=== PATIENT | male | born 1965 | race Caucasian/White ===

== ENCOUNTER 2021-10-24 14:33 | Outpatient (CLI) | payer BC, OTHER ==
[2021-10-24] MEDS ORDERED: Albumin 25% 100 ML ONE ×2 (15:14)
[2021-10-24] MEDS ORDERED: Lidocaine 1% PF 5 ML VIAL ONE (15:14)
[2021-10-24 16:03] VITALS: BP 90/57
[2021-10-24] MEDS ORDERED: FLU VACC QS2021-22(6MOS UP)/PF 60 MCG/0.5 ML SYRINGE IM ONE (16:15)
== END 2021-10-24 16:45 | disposition home or self-care (01) ==
LOC: CSHRAD 14:33
PROVIDERS: ATTEND Physician Assistant Medical
DX: K70.31 Alcoholic cirrhosis of liver with ascites (principal)
CPT/HCPCS: 49083; P9047

== ENCOUNTER 2021-11-05 07:28 | Day surgery (SDC) | payer BC ==
[2021-11-05] MEDS ORDERED: Lidocaine 1% PF 5 ML VIAL ONE (08:27)
[2021-11-05] MEDS ORDERED: Sodium Bicarbonate 2.5 MEQ/5 ML VIAL ONE (08:27)
[2021-11-05] MEDS ORDERED: Albumin 25% 200 ML ONE (08:27)
[2021-11-05 08:35] LABS: Hemoglobin 7.2 g/dL (13.5-17.5); Mean Corpuscular HGB CONC 33.2 g/dL (32.0-36.0); Mean Corpuscular Hemoglobin 32.4 pg (27.0-33.0); Mean Corpuscular Volume 97.7 fl (81.2-95.1); Mean Platelet Volume 10.7 fl (7.4-10.4); Platelet Count 94 10x3/uL (150-450); RBC Distribution Width 14.8 % (11.5-14.5); Red Blood Cell (RBC) Count 2.22 10x6/uL (4.32-5.72); White Blood Cell (WBC) Count 3.6 10x3/uL (3.5-10.5)
[2021-11-05 08:45] LABS: INR-International Normal Ratio 1.2; PTT 29.3 sec (22.0-33.0); Prothrombin Time 13.1 sec (9.5-12.1)
[2021-11-05 08:51] LABS: Anion Gap 11 mmol/L (10-20); BUN (Urea Nitrogen) 19 mg/dL (8.4-25.7); Calc. Creatinine Clearance 84 mL/min (70-130); Calcium 7.5 mg/dL (7.8-10.44); Carbon Dioxide 23 mmol/L (22-29); Chloride 100 mmol/L (98-107); Glucose 159 mg/dL (70-105); Potassium 4.6 mmol/L (3.5-5.1); Sodium 129 mmol/L (136-145)
[2021-11-05 09:50] LABS: MDiff Complete? YES
[2021-11-05 10:00] LABS: Eosinophils 3 % (0-10); Lymphocytes 24 % (21-51); Monocytes 4 % (0-10); Neutrophil 69 % (42-75)
[2021-11-05 10:03] LABS: Anisocytosis SLIGHT = 6-15 cells (100X) (0-5/hpf); Burr Cells SLIGHT = 2-5 cells (100X) (0-1/hpf); Hypochromia SLIGHT = 6-15 cells (100X) (0-5/hpf); Ovalocytes SLIGHT = 2-5 cells (100X) (0-1/hpf); Poikilocytosis SLIGHT = 6-15 cells (100X) (0-5/hpf)
[2021-11-05 10:04] LABS: Platelet Morphology Comment Appears Decreased
== END 2021-11-05 10:00 | disposition home or self-care (01) ==
LOC: CSHULT 07:28
PROVIDERS: ATTEND Physician Assistant Medical
DX: R18.8 Other ascites (principal)
CPT/HCPCS: 49083; 80048; 85007; 85027; 85610; 85730; P9047

== ENCOUNTER 2021-11-19 07:53 | Day surgery (SDC) | payer BC ==
[2021-11-19] MEDS ORDERED: Lidocaine 1% PF 5 ML VIAL ONE (08:26)
[2021-11-19] MEDS ORDERED: Sodium Bicarbonate 2.5 MEQ/5 ML VIAL ONE (08:26)
[2021-11-19] MEDS ORDERED: Albumin 25% 100 ML ONE ×2 (08:27)
[2021-11-19 08:37] VITALS: BP 104/58; TEMP 98.8
== END 2021-11-19 09:50 | disposition home or self-care (01) ==
LOC: CSHULT 07:53
PROVIDERS: ATTEND Physician Assistant Medical
DX: R18.8 Other ascites (principal)
CPT/HCPCS: 49083; P9047

== ENCOUNTER 2021-12-03 08:09 | Day surgery (SDC) | payer BC, OTHER ==
[2021-12-03] MEDS ORDERED: Albumin 25% 100 ML ONE ×2 (08:26→10:12)
[2021-12-03] MEDS ORDERED: Sodium Bicarbonate 2.5 MEQ/5 ML VIAL ONE (08:27)
[2021-12-03] MEDS ORDERED: Lidocaine 1% PF 5 ML VIAL ONE (08:27)
[2021-12-03 09:15] LABS: #Eosinphils 0.1 10x3/uL (0.0-0.5); #Monocytes 0.3 10x3/uL (0.0-1.1); #Neutrophils 2.6 10x3/uL (1.5-8.4); %Basophils 0.5 % (0.0-2.0); %Eosinophils 2.8 % (0.0-6.0); %Lymphocytes 20.3 % (18.0-47.0); %Monocytes 8.5 % (0.0-10.0); %Neutrophils 67.6 % (40.0-75.0); Hemoglobin 8.8 g/dL (13.5-17.5); Mean Corpuscular Hemoglobin 32.4 pg (27.0-33.0); Mean Corpuscular Volume 95.2 fl (81.2-95.1); Mean Platelet Volume 10.6 fl (7.4-10.4); Platelet Count 112 10x3/uL (150-450); RBC Distribution Width 15.1 % (11.5-14.5); Red Blood Cell (RBC) Count 2.72 10x6/uL (4.32-5.72); White Blood Cell (WBC) Count 3.9 10x3/uL (3.5-10.5)
[2021-12-03 09:20] VITALS: BP 107/59; TEMP 97.8
[2021-12-03 09:27] LABS: INR-International Normal Ratio 1.2; PTT 27.9 sec (22.0-33.0)
== END 2021-12-03 10:35 | disposition home or self-care (01) ==
LOC: CSHULT 08:09
PROVIDERS: ATTEND Physician Assistant Medical
DX: R18.8 Other ascites (principal)
CPT/HCPCS: 49083; 85025; 85610; 85730; P9047

== ENCOUNTER 2021-12-17 08:05 | Day surgery (SDC) | payer BC ==
[2021-12-17] MEDS ORDERED: Albumin 25% 100 ML ONE (08:45)
[2021-12-17] MEDS ORDERED: Sodium Bicarbonate 2.5 MEQ/5 ML VIAL ONE (08:46)
[2021-12-17] MEDS ORDERED: Lidocaine 1% PF 5 ML VIAL ONE (08:46)
[2021-12-17 10:12] VITALS: BP 102/56; TEMP 97.7
[2021-12-17] MEDS ORDERED: FLU VACC QS2021-22(6MOS UP)/PF 60 MCG/0.5 ML SYRINGE IM ONE (11:45)
== END 2021-12-17 10:00 | disposition home or self-care (01) ==
LOC: CSHULT 08:05
PROVIDERS: ATTEND Physician Assistant Medical
DX: R18.8 Other ascites (principal)
CPT/HCPCS: 49083; P9047

== ENCOUNTER 2021-12-31 07:59 | Day surgery (SDC) | payer BC, OTHER ==
[2021-12-31] MEDS ORDERED: Albumin 25% 200 ML ONE (08:38)
[2021-12-31] MEDS ORDERED: Sodium Bicarbonate 2.5 MEQ/5 ML VIAL ONE (08:38)
[2021-12-31] MEDS ORDERED: Lidocaine 1% (PF) 30 ML VIAL ONE (08:40)
[2021-12-31 08:42] LABS: #Eosinphils 0.2 10x3/uL (0.0-0.5); #Monocytes 0.5 10x3/uL (0.0-1.1); #Neutrophils 2.7 10x3/uL (1.5-8.4); %Basophils 0.9 % (0.0-2.0); %Eosinophils 3.9 % (0.0-6.0); %Lymphocytes 22.5 % (18.0-47.0); %Monocytes 10.6 % (0.0-10.0); %Neutrophils 61.6 % (40.0-75.0); Hemoglobin 8.9 g/dL (13.5-17.5); Mean Corpuscular HGB CONC 34.1 g/dL (32.0-36.0); Mean Corpuscular Hemoglobin 33.3 pg (27.0-33.0); Mean Corpuscular Volume 97.8 fl (81.2-95.1); Mean Platelet Volume 10.2 fl (7.4-10.4); Platelet Count 102 10x3/uL (150-450); Red Blood Cell (RBC) Count 2.67 10x6/uL (4.32-5.72); White Blood Cell (WBC) Count 4.4 10x3/uL (3.5-10.5)
[2021-12-31 08:54] LABS: INR-International Normal Ratio 1.3; PTT 30.4 sec (22.0-33.0); Prothrombin Time 14.1 sec (9.5-12.1)
[2021-12-31 09:08] VITALS: TEMP 97.6
== END 2021-12-31 10:00 | disposition home or self-care (01) ==
LOC: CSHULT 07:59
PROVIDERS: ATTEND Physician Assistant Medical
DX: R18.8 Other ascites (principal)
CPT/HCPCS: 49083; 85025; 85610; 85730; J2001; P9047

== ENCOUNTER 2022-02-25 07:36 | Day surgery (SDC) | payer BC ==
[2022-02-25 08:07] VITALS: TEMP 98
[2022-02-25] MEDS ORDERED: Lidocaine 1% PF 5 ML VIAL ONE (08:16)
[2022-02-25] MEDS ORDERED: Albumin 25% 200 ML ONE (08:16)
[2022-02-25] MEDS ORDERED: Sodium Bicarbonate 2.5 MEQ/5 ML VIAL ONE (08:16)
== END 2022-02-25 09:05 | disposition home or self-care (01) ==
LOC: CSHULT 07:36
PROVIDERS: ATTEND Physician Assistant Medical
DX: R18.8 Other ascites (principal)
CPT/HCPCS: 49083; P9047

== ENCOUNTER 2022-03-04 07:35 | Day surgery (SDC) | payer BC ==
[2022-03-04] MEDS ORDERED: Lidocaine 1% PF 5 ML VIAL ONE (07:51)
[2022-03-04] MEDS ORDERED: Albumin 25% 200 ML ONE (07:51)
[2022-03-04] MEDS ORDERED: Sodium Bicarbonate 2.5 MEQ/5 ML VIAL ONE (07:51)
[2022-03-04 08:05] VITALS: TEMP 98.1
== END 2022-03-04 09:10 | disposition home or self-care (01) ==
LOC: CSHULT 07:35
PROVIDERS: ATTEND Physician Assistant Medical
DX: K70.31 Alcoholic cirrhosis of liver with ascites (principal); F17.210 Nicotine dependence, cigarettes, uncomplicated; Z79.899 Other long term (current) drug therapy
CPT/HCPCS: 49083; P9047

== ENCOUNTER 2022-03-11 07:42 | Day surgery (SDC) | payer BC ==
[2022-03-11] MEDS ORDERED: Albumin 25% 200 ML ONE (08:11)
[2022-03-11] MEDS ORDERED: Lidocaine 1% PF 5 ML VIAL ONE (08:16)
[2022-03-11] MEDS ORDERED: Sodium Bicarbonate 2.5 MEQ/5 ML VIAL ONE (08:17)
[2022-03-11 08:30] LABS: Hemoglobin 8.9 g/dL (13.5-17.5); Mean Corpuscular HGB CONC 34.2 g/dL (32.0-36.0); Mean Corpuscular Hemoglobin 33.5 pg (27.0-33.0); Mean Corpuscular Volume 97.7 fl (81.2-95.1); Mean Platelet Volume 10.9 fl (7.4-10.4); Platelet Count 104 10x3/uL (150-450); RBC Distribution Width 14.3 % (11.5-14.5); Red Blood Cell (RBC) Count 2.66 10x6/uL (4.32-5.72); White Blood Cell (WBC) Count 4.6 10x3/uL (3.5-10.5)
[2022-03-11 08:55] LABS: INR-International Normal Ratio 1.3; Prothrombin Time 13.5 sec (9.5-12.1)
[2022-03-11 13:48] VITALS: BP 105/57; TEMP 97.5
== END 2022-03-11 09:42 | disposition home or self-care (01) ==
LOC: CSHULT 07:42
PROVIDERS: ATTEND Physician Assistant Medical
DX: K70.31 Alcoholic cirrhosis of liver with ascites (principal); R16.1 Splenomegaly, not elsewhere classified; K80.20 Calculus of gallbladder without cholecystitis without obstruction
CPT/HCPCS: 49083; 76705; 85027; 85610; P9047

== ENCOUNTER 2022-03-13 01:06 | Observation (INO) | payer BC ==
[2022-03-13] MEDS ORDERED: Ondansetron PF 4 MG/2 ML Vial IVP PRN (04:25)
[2022-03-13] MEDS ORDERED: Morphine 2 MG/ML VIAL SLOW IVP PRN (05:23)
[2022-03-13] MEDS ORDERED: Albumin 25% 25 GM/100 ML BOT IVPB SCH ×2 (05:30→09:00)
[2022-03-13] MEDS ORDERED: Sodium Chloride 0.9% 1,000 ML IV SCH (05:30)
[2022-03-13 05:36] VITALS: BMI 27.1
[2022-03-13 06:05] LABS: #Eosinphils 0.1 10x3/uL (0.0-0.5); #Monocytes 0.3 10x3/uL (0.0-1.1); #Neutrophils 2.1 10x3/uL (1.5-8.4); %Basophils 0.3 % (0.0-2.0); %Eosinophils 1.7 % (0.0-6.0); %Lymphocytes 17.8 % (18.0-47.0); %Monocytes 9.2 % (0.0-10.0); %Neutrophils 70.7 % (40.0-75.0); Hemoglobin 8.3 g/dL (13.5-17.5); Mean Corpuscular HGB CONC 35.9 g/dL (32.0-36.0); Mean Corpuscular Hemoglobin 33.7 pg (27.0-33.0); Mean Corpuscular Volume 93.9 fl (81.2-95.1); Mean Platelet Volume 10.9 fl (7.4-10.4); Platelet Count 79 10x3/uL (150-450); RBC Distribution Width 14.1 % (11.5-14.5); Red Blood Cell (RBC) Count 2.46 10x6/uL (4.32-5.72); White Blood Cell (WBC) Count 2.9 10x3/uL (3.5-10.5)
[2022-03-13 06:42] LABS: ALT (SGPT) 13 U/L (8-55); AST (SGOT) 32 U/L (5-34); Albumin 2.6 g/dL (3.5-5.0); Alkaline Phosphatase 148 U/L (40-110); Anion Gap 10 mmol/L (10-20); BUN (Urea Nitrogen) 13 mg/dL (8.4-25.7); Bilirubin, Total 3.6 mg/dL (0.2-1.2); Calc. Creatinine Clearance 129 mL/min (70-130); Calcium 7.8 mg/dL (7.8-10.44); Carbon Dioxide 25 mmol/L (22-29); Chloride 98 mmol/L (98-107); Globulin 2.5 g/dL (2.4-3.5); Glucose 167 mg/dL (70-105); Potassium 4.5 mmol/L (3.5-5.1); Protein, Total 5.1 g/dL (6.0-8.3); Sodium 128 mmol/L (136-145)
[2022-03-13] MEDS ORDERED: Pantoprazole 40 MG VIAL IVP SCH (09:00)
[2022-03-13] MEDS ORDERED: Furosemide 20 MG/2 ML VIAL SLOW IVP SCH (09:00)
[2022-03-13 11:20] LABS: #Eosinphils 0.1 10x3/uL (0.0-0.5); #Monocytes 0.3 10x3/uL (0.0-1.1); #Neutrophils 1.6 10x3/uL (1.5-8.4); %Basophils 0.8 % (0.0-2.0); %Eosinophils 3.5 % (0.0-6.0); %Monocytes 12.7 % (0.0-10.0); %Neutrophils 60.6 % (40.0-75.0); Hemoglobin 7.3 g/dL (13.5-17.5); Mean Corpuscular HGB CONC 35.8 g/dL (32.0-36.0); Mean Corpuscular Hemoglobin 33.5 pg (27.0-33.0); Mean Corpuscular Volume 93.6 fl (81.2-95.1); Mean Platelet Volume 10.9 fl (7.4-10.4); Platelet Count 70 10x3/uL (150-450); RBC Distribution Width 13.9 % (11.5-14.5); Red Blood Cell (RBC) Count 2.18 10x6/uL (4.32-5.72); White Blood Cell (WBC) Count 2.6 10x3/uL (3.5-10.5)
[2022-03-13 11:30] LABS: Anion Gap 9 mmol/L (10-20); BUN (Urea Nitrogen) 12 mg/dL (8.4-25.7); Calc. Creatinine Clearance 139 mL/min (70-130); Calcium 7.7 mg/dL (7.8-10.44); Carbon Dioxide 24 mmol/L (22-29); Chloride 100 mmol/L (98-107); Glucose 125 mg/dL (70-105); Potassium 4.1 mmol/L (3.5-5.1); Sodium 129 mmol/L (136-145)
[2022-03-13 11:50] LABS: Bilirubin Neg (Negative); Blood, Urine Negative (Negative); Clarity Clear (Clear); Glucose, Urine (Dipstick) Normal (Negative); Ketone, Urine Negative (Negative); Leukocyte Negative (Negative); Nitrite Negative (Negative); Protein, Urine (Dipstick) 15 mg/dl (Neg-Trace); Specific Gravity, Urine 1.015 (1.002-1.036)
[2022-03-13 12:00] LABS: Bacteria/HPF None Seen HPF (None Seen); RBC/HPF 0-3 HPF (0-3); Squamous Epithelial None Seen HPF (0-3); WBC/HPF None Seen HPF (0-3)
[2022-03-13 12:56] VITALS: TEMP 98.2
[2022-03-13 14:25] VITALS: BP 93/51
[2022-03-13 15:59] LABS: SARS-CoV-2 PCR by NAA Not Detected (NotDetected)
== END 2022-03-13 15:12 | disposition home or self-care (01) ==
LOC: CSHERS 01:06 → CSHTELE 05:19
PROVIDERS: ADMIT Student in an Organized Health Care Education/Training Program; ATTEND Nurse Practitioner Family
DX: K42.0 Umbilical hernia with obstruction, without gangrene (principal); K76.6 Portal hypertension; K70.31 Alcoholic cirrhosis of liver with ascites; D69.6 Thrombocytopenia, unspecified; K40.90 Unilateral inguinal hernia, without obstruction or gangrene, not specified as recurrent; D63.8 Anemia in other chronic diseases classified elsewhere; E87.1 Hypo-osmolality and hyponatremia; F17.210 Nicotine dependence, cigarettes, uncomplicated; F10.21 Alcohol dependence, in remission; Z20.822 Contact with and (suspected) exposure to COVID-19
CPT/HCPCS: 74177; 80053; 81001; 85025; 96374; 96375; 96376; C9113; G0378; J7050; P9047; U0003; U0005

== ENCOUNTER 2022-03-18 07:29 | Day surgery (SDC) | payer BC ==
[2022-03-18] MEDS ORDERED: Albumin 25% 100 ML ONE ×2 (07:51)
[2022-03-18] MEDS ORDERED: Lidocaine 1% PF 5 ML VIAL ONE (07:51)
[2022-03-18] MEDS ORDERED: Sodium Bicarbonate 2.5 MEQ/5 ML VIAL ONE (07:52)
[2022-03-18 08:22] VITALS: TEMP 99.2
[2022-03-18 09:04] VITALS: BP 93/51
== END 2022-03-18 09:13 | disposition home or self-care (01) ==
LOC: CSHULT 07:29
PROVIDERS: ATTEND Physician Assistant Medical
DX: K70.31 Alcoholic cirrhosis of liver with ascites (principal); F17.210 Nicotine dependence, cigarettes, uncomplicated
CPT/HCPCS: 49083; P9047

== ENCOUNTER 2022-03-18 22:30 | Emergency (ER) | payer BC, MEDICAID ==
[2022-03-18] MEDS ORDERED: Fentanyl 100 MCG/2 ML VIAL ONE (23:15)
== END 2022-03-19 00:03 | disposition home or self-care (01) ==
LOC: CSHERS 22:30
DX: K42.9 Umbilical hernia without obstruction or gangrene (principal); F17.210 Nicotine dependence, cigarettes, uncomplicated; Z87.19 Personal history of other diseases of the digestive system
CPT/HCPCS: 96372; 99283; J3010

== ENCOUNTER → 2022-03-25 | Day surgery (SDC) | payer BC ==
[~2022-03-25] MED LIST: Albumin 25% 200 ML ONE; Lidocaine 1% PF 5 ML VIAL ONE; Sodium Bicarbonate 2.5 MEQ/5 ML VIAL ONE
== END ==
LOC: CSHULT 07:27
PROVIDERS: ATTEND Physician Assistant Medical
DX: R18.8 Other ascites (principal)
CPT/HCPCS: 49083; P9047

== ENCOUNTER → 2022-04-02 | Day surgery (SDC) | payer BC, MEDICAID | LOC: CSHULT 07:39 | PROVIDERS: ATTEND Physician Assistant Medical | PROC: 0W9G3ZZ Drainage of Peritoneal Cavity, Percutaneous Approach (ICD-10-PCS; principal; 2022-04-02) | PROC: BW40ZZZ Ultrasonography of Abdomen (ICD-10-PCS; principal; 2022-04-02) | DX: R18.8 Other ascites (principal) | CPT/HCPCS: 76705 ==

== ENCOUNTER 2022-04-15 08:12 | Day surgery (SDC) | payer BC, MEDICAID ==
[~2022-04-15 08:12] MED LIST changes: +Albumin 25% 100 ML ONE; -Albumin 25% 200 ML ONE
[2022-04-15 08:49] VITALS: BP 84/51; TEMP 97.6
== END 2022-04-15 09:55 | disposition home or self-care (01) ==
LOC: CSHULT 08:12
PROVIDERS: ATTEND Physician Assistant Medical
PROC: 0W9G3ZZ Drainage of Peritoneal Cavity, Percutaneous Approach (ICD-10-PCS; principal; 2022-04-15)
DX: K70.31 Alcoholic cirrhosis of liver with ascites (principal)
CPT/HCPCS: 49083; C1760; P9047

== ENCOUNTER 2022-04-23 07:23 | Day surgery (SDC) | payer BC ==
[2022-04-23] MEDS ORDERED: Lidocaine 1% PF 5 ML VIAL ONE (07:49)
[2022-04-23] MEDS ORDERED: Albumin 25% 100 ML ONE (07:49)
[2022-04-23] MEDS ORDERED: Sodium Bicarbonate 2.5 MEQ/5 ML VIAL ONE (07:49)
[2022-04-23 08:21] LABS: Hemoglobin 6.5 g/dL (13.5-17.5); MDiff Complete? YES; Mean Corpuscular HGB CONC 34.4 g/dL (32.0-36.0); Mean Corpuscular Hemoglobin 34.4 pg (27.0-33.0); Mean Platelet Volume 10.2 fl (7.4-10.4); Platelet Count 79 10x3/uL (150-450); RBC Distribution Width 16.6 % (11.5-14.5); Red Blood Cell (RBC) Count 1.89 10x6/uL (4.32-5.72); White Blood Cell (WBC) Count 3.2 10x3/uL (3.5-10.5)
[2022-04-23 08:33] LABS: INR-International Normal Ratio 1.3; Prothrombin Time 13.9 sec (9.5-12.1)
[2022-04-23 08:44] LABS: Eosinophils 1 % (0-10); Lymphocytes 18 % (21-51)
[2022-04-23 08:45] LABS: Monocytes 10 % (0-10); Neutrophil 70 % (42-75); Platelet Morphology Comment Appears Decreased
[2022-04-23 08:48] LABS: Macrocytosis SLIGHT = 6-15 cells (100X) (0-5/hpf)
[2022-04-23 08:50] LABS: Ovalocytes SLIGHT = 2-5 cells (100X) (0-1/hpf)
[2022-04-23 10:27] VITALS: BP 91/55; TEMP 97.8; BMI 26.9
== END 2022-04-23 09:40 | disposition home or self-care (01) ==
LOC: CSHULT 07:23
PROVIDERS: ATTEND Physician Assistant Medical
PROC: 0W9G3ZZ Drainage of Peritoneal Cavity, Percutaneous Approach (ICD-10-PCS; principal; 2022-04-23)
DX: K70.31 Alcoholic cirrhosis of liver with ascites (principal); D53.9 Nutritional anemia, unspecified
CPT/HCPCS: 49083; 85025; 85610; P9047

== ENCOUNTER 2022-04-26 12:16 | Emergency (ER) | payer BC, MEDICAID ==
[2022-04-26 13:24] LABS: #Eosinphils 0.1 10x3/uL (0.0-0.5); #Monocytes 0.4 10x3/uL (0.0-1.1); #Neutrophils 2.2 10x3/uL (1.5-8.4); %Basophils 0.3 % (0.0-2.0); %Eosinophils 3.8 % (0.0-6.0); %Lymphocytes 21.4 % (18.0-47.0); %Monocytes 10.4 % (0.0-10.0); %Neutrophils 63.8 % (40.0-75.0); Hemoglobin 6.5 g/dL (13.5-17.5); Mean Corpuscular HGB CONC 35.9 g/dL (32.0-36.0); Mean Corpuscular Hemoglobin 34.9 pg (27.0-33.0); Mean Corpuscular Volume 97.3 fl (81.2-95.1); Mean Platelet Volume 10.2 fl (7.4-10.4); Platelet Count 81 10x3/uL (150-450); RBC Distribution Width 16.2 % (11.5-14.5); Red Blood Cell (RBC) Count 1.86 10x6/uL (4.32-5.72); White Blood Cell (WBC) Count 3.5 10x3/uL (3.5-10.5)
[2022-04-26 13:28] LABS: INR-International Normal Ratio 1.3; PTT 29.5 sec (22.0-33.0); Prothrombin Time 14.3 sec (9.5-12.1)
[2022-04-26 13:31] LABS: ALT (SGPT) 15 U/L (8-55); AST (SGOT) 35 U/L (5-34); Albumin 2.3 g/dL (3.5-5.0); Alkaline Phosphatase 119 U/L (40-110); Anion Gap 9 mmol/L (10-20); BUN (Urea Nitrogen) 18 mg/dL (8.4-25.7); Bilirubin, Total 5.1 mg/dL (0.2-1.2); Calc. Creatinine Clearance 0 mL/min (70-130); Calcium 7.8 mg/dL (7.8-10.44); Carbon Dioxide 26 mmol/L (22-29); Chloride 102 mmol/L (98-107); Globulin 2.5 g/dL (2.4-3.5); Glucose 125 mg/dL (70-105); Potassium 4.4 mmol/L (3.5-5.1); Protein, Total 4.8 g/dL (6.0-8.3); Sodium 133 mmol/L (136-145)
[2022-04-26] MEDS ORDERED: cefTRIAXone\\ROCEPHIN 2 GM VIAL ONE (16:34)
[2022-04-26] MEDS ORDERED: Pantoprazole 40 MG VIAL ONE (16:34)
[2022-04-26] MEDS ORDERED: Octreotide Acetate 100 MCG/ML VIAL ONE (16:35)
== END 2022-04-26 17:00 | disposition short-term general hospital (02) ==
LOC: CSHERS 12:16
DX: D62 Acute posthemorrhagic anemia (principal); K92.2 Gastrointestinal hemorrhage, unspecified; K72.90 Hepatic failure, unspecified without coma; F17.220 Nicotine dependence, chewing tobacco, uncomplicated
CPT/HCPCS: 36415; 36430; 71045; 80053; 82274; 84484; 85025; 85610; 85730; 86850; 86900; 86901; 93005; 96372; 96374; 96375; C9113; J0696; J2354; P9016

== ENCOUNTER 2022-04-29 07:23 | Day surgery (SDC) | payer BC, MEDICAID ==
[2022-04-29] MEDS ORDERED: Sodium Bicarbonate 2.5 MEQ/5 ML VIAL ONE (07:46)
[2022-04-29] MEDS ORDERED: Albumin 25% 200 ML ONE (07:46)
[2022-04-29] MEDS ORDERED: Lidocaine 1% PF 5 ML VIAL ONE (07:47)
[2022-04-29 08:40] VITALS: BP 106/56; TEMP 98
== END 2022-04-29 09:10 | disposition home or self-care (01) ==
LOC: CSHULT 07:23
PROVIDERS: ATTEND Physician Assistant Medical
PROC: 0W9G3ZZ Drainage of Peritoneal Cavity, Percutaneous Approach (ICD-10-PCS; principal; 2022-04-29)
DX: K70.31 Alcoholic cirrhosis of liver with ascites (principal)
CPT/HCPCS: 49083; P9047

== ENCOUNTER 2022-05-07 07:12 | Day surgery (SDC) | payer BC, OTHER ==
[2022-05-07] MEDS ORDERED: Albumin 25% 200 ML ONE (07:25)
[2022-05-07] MEDS ORDERED: Lidocaine 1% PF 5 ML VIAL ONE (07:25)
[2022-05-07] MEDS ORDERED: Sodium Bicarbonate 2.5 MEQ/5 ML VIAL ONE (07:26)
[2022-05-07 08:37] VITALS: BP 101/57; TEMP 97.6
== END 2022-05-07 09:09 | disposition home or self-care (01) ==
LOC: CSHULT 07:12
PROVIDERS: ATTEND Physician Assistant Medical
PROC: 0W9G3ZZ Drainage of Peritoneal Cavity, Percutaneous Approach (ICD-10-PCS; principal; 2022-05-07)
DX: R18.8 Other ascites (principal)
CPT/HCPCS: 49083; P9047

== ENCOUNTER 2022-05-13 07:08 | Day surgery (SDC) | payer BC, OTHER ==
[2022-05-13] MEDS ORDERED: Sodium Bicarbonate 2.5 MEQ/5 ML VIAL ONE (07:41)
[2022-05-13] MEDS ORDERED: Albumin 25% 200 ML ONE (07:41)
[2022-05-13] MEDS ORDERED: Lidocaine 1% PF 5 ML VIAL ONE (07:41)
[2022-05-13 08:14] VITALS: BP 108/57; TEMP 97.8
[2022-05-13] MEDS ORDERED: Prevnar 13-Val Conj/PF 0.5 ML SYRINGE IM ONE (08:30)
== END 2022-05-13 09:20 | disposition home or self-care (01) ==
LOC: CSHULT 07:08
PROVIDERS: ATTEND Physician Assistant Medical
PROC: 0W9G3ZZ Drainage of Peritoneal Cavity, Percutaneous Approach (ICD-10-PCS; principal; 2022-05-13)
DX: K70.31 Alcoholic cirrhosis of liver with ascites (principal)
CPT/HCPCS: 49083; P9047

== ENCOUNTER 2022-05-27 07:16 | Day surgery (SDC) | payer BC, OTHER ==
[2022-05-27] MEDS ORDERED: Albumin 25% 200 ML ONE (07:39)
[2022-05-27] MEDS ORDERED: Sodium Bicarbonate 2.5 MEQ/5 ML VIAL ONE (07:39)
[2022-05-27] MEDS ORDERED: Lidocaine 1% PF 5 ML VIAL ONE (07:39)
[2022-05-27 07:54] VITALS: TEMP 98.4
== END 2022-05-27 09:37 | disposition home or self-care (01) ==
LOC: CSHULT 07:16
PROVIDERS: ATTEND Physician Assistant Medical
PROC: 0W9G3ZZ Drainage of Peritoneal Cavity, Percutaneous Approach (ICD-10-PCS; principal; 2022-05-27)
PROC: BW40ZZZ Ultrasonography of Abdomen (ICD-10-PCS; principal; 2022-05-27)
DX: R18.8 Other ascites (principal); K74.60 Unspecified cirrhosis of liver; F17.200 Nicotine dependence, unspecified, uncomplicated
CPT/HCPCS: 49083; P9047

== ENCOUNTER 2022-06-03 07:53 | Day surgery (SDC) | payer BC, OTHER ==
[~2022-06-03 07:53] MED LIST changes: -Albumin 25% 100 ML ONE; +Albumin 25% 200 ML ONE
[2022-06-03 08:19] VITALS: BP 106/56; TEMP 97.7
== END 2022-06-03 09:35 | disposition home or self-care (01) ==
LOC: CSHULT 07:53
PROVIDERS: ATTEND Physician Assistant Medical
PROC: 0W9G3ZZ Drainage of Peritoneal Cavity, Percutaneous Approach (ICD-10-PCS; principal; 2022-06-03)
DX: R18.8 Other ascites (principal); K74.60 Unspecified cirrhosis of liver
CPT/HCPCS: 49083; P9047

== ENCOUNTER 2022-06-10 07:43 | Day surgery (SDC) | payer BC ==
[2022-06-10] MEDS ORDERED: Albumin 25% 200 ML ONE (08:02)
[2022-06-10] MEDS ORDERED: Lidocaine 1% PF 5 ML VIAL ONE (08:02)
[2022-06-10] MEDS ORDERED: Sodium Bicarbonate 2.5 MEQ/5 ML VIAL ONE (08:02)
[2022-06-10 08:30] LABS: Hemoglobin 7.5 g/dL (13.5-17.5); Mean Corpuscular HGB CONC 34.9 g/dL (32.0-36.0); Mean Corpuscular Hemoglobin 34.2 pg (27.0-33.0); Mean Corpuscular Volume 98.2 fl (81.2-95.1); Platelet Count 92 10x3/uL (150-450); RBC Distribution Width 15.2 % (11.5-14.5); Red Blood Cell (RBC) Count 2.19 10x6/uL (4.32-5.72); White Blood Cell (WBC) Count 3.2 10x3/uL (3.5-10.5)
[2022-06-10 08:38] LABS: INR-International Normal Ratio 1.3; Prothrombin Time 14.2 sec (9.5-12.1)
== END 2022-06-10 09:10 | disposition home or self-care (01) ==
LOC: CSHULT 07:43
PROVIDERS: ATTEND Physician Assistant Medical
PROC: 0W9G3ZZ Drainage of Peritoneal Cavity, Percutaneous Approach (ICD-10-PCS; principal; 2022-06-10)
DX: R18.8 Other ascites (principal)
CPT/HCPCS: 49083; 85027; 85610; P9047

== ENCOUNTER 2022-06-17 07:12 | Day surgery (SDC) | payer BC ==
[2022-06-17 07:43] VITALS: BP 110/56; TEMP 97.6
[2022-06-17] MEDS ORDERED: Albumin 25% 200 ML ONE (07:43)
[2022-06-17] MEDS ORDERED: Lidocaine 1% PF 5 ML VIAL ONE (07:43)
[2022-06-17] MEDS ORDERED: Sodium Bicarbonate 2.5 MEQ/5 ML VIAL ONE (07:44)
== END 2022-06-17 08:42 | disposition home or self-care (01) ==
LOC: CSHULT 07:12
PROVIDERS: ATTEND Physician Assistant Medical
PROC: 0W9G3ZZ Drainage of Peritoneal Cavity, Percutaneous Approach (ICD-10-PCS; principal; 2022-06-17)
DX: R18.8 Other ascites (principal)
CPT/HCPCS: 49083; P9047

== ENCOUNTER 2022-06-24 07:22 | Day surgery (SDC) | payer BC ==
[2022-06-24] MEDS ORDERED: Lidocaine 1% PF 5 ML VIAL ONE (07:40)
[2022-06-24] MEDS ORDERED: Sodium Bicarbonate 2.5 MEQ/5 ML VIAL ONE (07:40)
[2022-06-24] MEDS ORDERED: Albumin 25% 200 ML ONE (07:40)
[2022-06-24 08:52] VITALS: BP 108/54; TEMP 98.2
== END 2022-06-24 09:00 | disposition home or self-care (01) ==
LOC: CSHULT 07:22
PROVIDERS: ATTEND Physician Assistant Medical
PROC: 0W9G3ZZ Drainage of Peritoneal Cavity, Percutaneous Approach (ICD-10-PCS; principal; 2022-06-24)
PROC: BW40ZZZ Ultrasonography of Abdomen (ICD-10-PCS; principal; 2022-06-24)
DX: R18.8 Other ascites (principal); Z79.899 Other long term (current) drug therapy
CPT/HCPCS: 49083; P9047

== ENCOUNTER 2022-07-01 07:28 | Day surgery (SDC) | payer BC ==
[2022-06-27 07:17] VITALS: BMI 26.9
[2022-07-01] MEDS ORDERED: Lidocaine 1% PF 5 ML VIAL ONE (07:46)
[2022-07-01] MEDS ORDERED: Albumin 25% 200 ML ONE (07:46)
[2022-07-01] MEDS ORDERED: Sodium Bicarbonate 2.5 MEQ/5 ML VIAL ONE (07:46)
== END 2022-07-01 09:02 | disposition home or self-care (01) ==
LOC: CSHULT 07:28
PROVIDERS: ATTEND Physician Assistant Medical
PROC: 0W9G3ZX Drainage of Peritoneal Cavity, Percutaneous Approach, Diagnostic (ICD-10-PCS; principal; 2022-07-01)
PROC: BW40ZZZ Ultrasonography of Abdomen (ICD-10-PCS; principal; 2022-07-01)
DX: R18.8 Other ascites (principal)
CPT/HCPCS: 49083; P9047

== ENCOUNTER 2022-07-09 08:43 | Inpatient (IN) | payer BC, OTHER ==
[2022-07-09 08:08] LABS: #Eosinphils 0.2 10x3/uL (0.0-0.5); #Monocytes 0.4 10x3/uL (0.0-1.1); #Neutrophils 2.7 10x3/uL (1.5-8.4); %Basophils 0.7 % (0.0-2.0); %Eosinophils 5.9 % (0.0-6.0); %Lymphocytes 15.8 % (18.0-47.0); %Monocytes 10.9 % (0.0-10.0); %Neutrophils 66.5 % (40.0-75.0); Hemoglobin 6.3 g/dL (13.5-17.5); Mean Corpuscular HGB CONC 34.4 g/dL (32.0-36.0); Mean Corpuscular Hemoglobin 34.4 pg (27.0-33.0); Mean Platelet Volume 10.1 fl (7.4-10.4); Platelet Count 104 10x3/uL (150-450); RBC Distribution Width 15.4 % (11.5-14.5); Red Blood Cell (RBC) Count 1.83 10x6/uL (4.32-5.72); White Blood Cell (WBC) Count 4.1 10x3/uL (3.5-10.5)
[2022-07-09 08:18] LABS: INR-International Normal Ratio 1.2; Prothrombin Time 13.2 sec (9.5-12.1)
[2022-07-09 08:22] LABS: ALT (SGPT) 13 U/L (8-55); AST (SGOT) 34 U/L (5-34); Albumin 2.7 g/dL (3.5-5.0); Alkaline Phosphatase 114 U/L (40-110); Anion Gap 12 mmol/L (10-20); BUN (Urea Nitrogen) 47 mg/dL (8.4-25.7); Bilirubin, Total 2.6 mg/dL (0.2-1.2); Calc. Creatinine Clearance 55 mL/min (70-130); Carbon Dioxide 22 mmol/L (22-29); Chloride 101 mmol/L (98-107); Estimated GFR 29; Globulin 2.8 g/dL (2.4-3.5); Glucose 143 mg/dL (70-105); Potassium 4.8 mmol/L (3.5-5.1); Protein, Total 5.5 g/dL (6.0-8.3); Sodium 130 mmol/L (136-145)
[2022-07-09 08:40] LABS: #Eosinphils 0.1 10x3/uL (0.0-0.5); #Monocytes 0.3 10x3/uL (0.0-1.1); #Neutrophils 1.6 10x3/uL (1.5-8.4); %Basophils 0.4 % (0.0-2.0); %Eosinophils 5.8 % (0.0-6.0); %Lymphocytes 16.9 % (18.0-47.0); %Monocytes 11.6 % (0.0-10.0); %Neutrophils 65.3 % (40.0-75.0); Hemoglobin 5.7 g/dL (13.5-17.5); Mean Corpuscular HGB CONC 35.2 g/dL (32.0-36.0); Mean Corpuscular Hemoglobin 34.8 pg (27.0-33.0); Mean Corpuscular Volume 98.8 fl (81.2-95.1); Mean Platelet Volume 9.6 fl (7.4-10.4); Platelet Count 74 10x3/uL (150-450); RBC Distribution Width 15.1 % (11.5-14.5); Red Blood Cell (RBC) Count 1.64 10x6/uL (4.32-5.72); White Blood Cell (WBC) Count 2.4 10x3/uL (3.5-10.5)
[2022-07-09 10:03] LABS: SARS-CoV-2 NAA Rapid Test Not Detected (NotDetected)
[2022-07-09] MEDS ORDERED: Pantoprazole 40 MG VIAL ONE ×2 (10:21→20:27)
[2022-07-09] MEDS ORDERED: Morphine 2 MG/ML VIAL ONE (10:22)
[2022-07-09] MEDS ORDERED: Ondansetron ODT 4 MG TAB PO PRN (10:48)
[2022-07-09] MEDS ORDERED: Furosemide 40 MG/4 ML VIAL ONE (10:57)
[2022-07-09] MEDS ORDERED: Furosemide 20 MG/2 ML VIAL SLOW IVP SCH (11:00)
[2022-07-09 15:03] VITALS: BMI 36.5
[2022-07-09 15:18] LABS: Anion Gap 12 mmol/L (10-20); BUN (Urea Nitrogen) 49 mg/dL (8.4-25.7); Calc. Creatinine Clearance 61 mL/min (70-130); Calcium 7.9 mg/dL (7.8-10.44); Carbon Dioxide 22 mmol/L (22-29); Chloride 101 mmol/L (98-107); Estimated GFR 30; Glucose 101 mg/dL (70-105); Potassium 4.9 mmol/L (3.5-5.1); Sodium 130 mmol/L (136-145)
[2022-07-09 18:48] LABS: Hemoglobin 6.2 g/dL (13.5-17.5)
[2022-07-09 20:01] LABS: Hemoglobin 6.6 g/dL (13.5-17.5)
[2022-07-09] MEDS ORDERED: Octreotide Acetate 50 MCG/ML AMP SLOW IVP SCH (20:30)
[2022-07-09] MEDS ORDERED: Octreotide Acetate 1,250 MCG in Sodium Chloride 0.9% 250 ML 250 ML IVPB SCH (20:30)
[2022-07-09] MEDS: cefTRIAXone\\ROCEPHIN 1 GM in Sodium Chloride 0.9% 100 ML IVPB SCH (20:38)
[2022-07-09] MEDS: Rifaximin 550 MG TAB PO SCH (20:42)
[2022-07-09] MEDS: Pantoprazole 40 MG VIAL IVP SCH (20:44)
[2022-07-09] MEDS: Albumin 25% 25 GM/100 ML BOT IVPB SCH (21:31)
[2022-07-10] MEDS ORDERED: traMADol HCl 50 MG TAB PO SCH (00:30)
[2022-07-10] MEDS: Albumin 25% 25 GM/100 ML BOT IVPB SCH ×5 (03:04→20:15)
[2022-07-10 05:16] LABS: INR-International Normal Ratio 1.4; Prothrombin Time 15.1 sec (9.5-12.1)
[2022-07-10 05:20] LABS: #Eosinphils 0.2 10x3/uL (0.0-0.5); #Monocytes 0.3 10x3/uL (0.0-1.1); #Neutrophils 1.6 10x3/uL (1.5-8.4); %Basophils 0.4 % (0.0-2.0); %Eosinophils 6.5 % (0.0-6.0); %Lymphocytes 19.4 % (18.0-47.0); %Monocytes 10.1 % (0.0-10.0); %Neutrophils 63.2 % (40.0-75.0); Mean Corpuscular HGB CONC 35.5 g/dL (32.0-36.0); Mean Corpuscular Hemoglobin 34.7 pg (27.0-33.0); Mean Corpuscular Volume 97.7 fl (81.2-95.1); Mean Platelet Volume 10.2 fl (7.4-10.4); Platelet Count 80 10x3/uL (150-450); RBC Distribution Width 15.8 % (11.5-14.5); Red Blood Cell (RBC) Count 1.73 10x6/uL (4.32-5.72); White Blood Cell (WBC) Count 2.5 10x3/uL (3.5-10.5)
[2022-07-10 06:05] LABS: ALT (SGPT) 12 U/L (8-55); AST (SGOT) 30 U/L (5-34); Albumin 2.9 g/dL (3.5-5.0); Alkaline Phosphatase 78 U/L (40-110); Anion Gap 14 mmol/L (10-20); BUN (Urea Nitrogen) 49 mg/dL (8.4-25.7); Bilirubin, Total 4.7 mg/dL (0.2-1.2); Calc. Creatinine Clearance 58 mL/min (70-130); Calcium 7.7 mg/dL (7.8-10.44); Carbon Dioxide 20 mmol/L (22-29); Chloride 103 mmol/L (98-107); Estimated GFR 28; Globulin 2.1 g/dL (2.4-3.5); Glucose 117 mg/dL (70-105); Sodium 132 mmol/L (136-145)
[2022-07-10] MEDS: Pantoprazole 40 MG VIAL IVP SCH ×2 (09:15→21:15)
[2022-07-10] MEDS: Rifaximin 550 MG TAB PO SCH ×2 (09:15→21:16)
[2022-07-10] MEDS ORDERED: Sodium Bicarbonate 2.5 MEQ/5 ML VIAL ONE (10:07)
[2022-07-10] MEDS ORDERED: Lidocaine 1% PF 5 ML VIAL ONE (10:07)
[2022-07-10 12:05] LABS: BF Color Yellow; Body Fluid Source Ascites Body Fluid; Clarity Hazy (Clear); Tube # EDTA
[2022-07-10 12:47] LABS: Eosinophils 2 %; Lymphocytes 64 %
[2022-07-10 12:51] LABS: BF Segmented Neutrophils 12 %; Cell Count Non Hematic 22 %
[2022-07-10] MEDS: Sodium Chloride 0.9% 1,000 ML IV SCH (13:34)
[2022-07-10] MEDS ORDERED: PROPOFOL 20 ML ONE ×2 (14:45→15:05)
[2022-07-10] MEDS ORDERED: ePHEDrine Sulfate 50 MG/10 ML VIAL ONE (14:49)
[2022-07-10] MEDS: HYDROcodone/Acetaminophen 5/325 mg Tablet PO PRN (18:28)
[2022-07-10] MEDS: cefTRIAXone\\ROCEPHIN 1 GM in Sodium Chloride 0.9% 100 ML IVPB SCH (21:15)
[2022-07-11] MEDS: HYDROcodone/Acetaminophen 5/325 mg Tablet PO PRN ×2 (00:16→07:43)
[2022-07-11 04:46] LABS: #Eosinphils 0.2 10x3/uL (0.0-0.5); #Monocytes 0.4 10x3/uL (0.0-1.1); #Neutrophils 1.9 10x3/uL (1.5-8.4); %Basophils 0.6 % (0.0-2.0); %Eosinophils 6.1 % (0.0-6.0); %Lymphocytes 18.8 % (18.0-47.0); %Monocytes 11.7 % (0.0-10.0); %Neutrophils 62.5 % (40.0-75.0); Hemoglobin 6.5 g/dL (13.5-17.5); Mean Corpuscular HGB CONC 34.6 g/dL (32.0-36.0); Mean Corpuscular Hemoglobin 33.9 pg (27.0-33.0); Mean Corpuscular Volume 97.9 fl (81.2-95.1); Mean Platelet Volume 9.9 fl (7.4-10.4); Platelet Count 88 10x3/uL (150-450); RBC Distribution Width 16.5 % (11.5-14.5); Red Blood Cell (RBC) Count 1.92 10x6/uL (4.32-5.72)
[2022-07-11 05:14] LABS: ALT (SGPT) 12 U/L (8-55); AST (SGOT) 31 U/L (5-34); Albumin 3.1 g/dL (3.5-5.0); Alkaline Phosphatase 64 U/L (40-110); Anion Gap 14 mmol/L (10-20); BUN (Urea Nitrogen) 47 mg/dL (8.4-25.7); Bilirubin, Total 4.5 mg/dL (0.2-1.2); Calc. Creatinine Clearance 56 mL/min (70-130); Calcium 7.8 mg/dL (7.8-10.44); Carbon Dioxide 20 mmol/L (22-29); Chloride 103 mmol/L (98-107); Estimated GFR 27; Globulin 1.9 g/dL (2.4-3.5); Glucose 159 mg/dL (70-105); Potassium 4.7 mmol/L (3.5-5.1); Sodium 132 mmol/L (136-145)
[2022-07-11] MEDS: Sodium Chloride 0.9% 1,000 ML IV SCH ×2 (06:51→18:30)
[2022-07-11] MEDS: Rifaximin 550 MG TAB PO SCH ×2 (07:43→21:53)
[2022-07-11] MEDS: Pantoprazole 40 MG VIAL IVP SCH ×2 (07:46→21:53)
[2022-07-11] MEDS: Albumin 25% 25 GM/100 ML BOT IVPB SCH (20:26)
[2022-07-11] MEDS: cefTRIAXone\\ROCEPHIN 1 GM in Sodium Chloride 0.9% 100 ML IVPB SCH (21:49)
[2022-07-12 04:52] LABS: INR-International Normal Ratio 1.4; PTT 33.1 sec (22.0-33.0); Prothrombin Time 15.3 sec (9.5-12.1)
[2022-07-12 05:00] LABS: ALT (SGPT) 11 U/L (8-55); AST (SGOT) 30 U/L (5-34); Alkaline Phosphatase 66 U/L (40-110); Anion Gap 12 mmol/L (10-20); BUN (Urea Nitrogen) 42 mg/dL (8.4-25.7); Bilirubin, Total 4.4 mg/dL (0.2-1.2); Calc. Creatinine Clearance 73 mL/min (70-130); Calcium 7.5 mg/dL (7.8-10.44); Carbon Dioxide 20 mmol/L (22-29); Chloride 105 mmol/L (98-107); Estimated GFR 37; Glucose 121 mg/dL (70-105); Potassium 4.5 mmol/L (3.5-5.1); Sodium 132 mmol/L (136-145)
[2022-07-12 05:05] LABS: #Eosinphils 0.1 10x3/uL (0.0-0.5); #Monocytes 0.3 10x3/uL (0.0-1.1); #Neutrophils 2.5 10x3/uL (1.5-8.4); %Basophils 0.6 % (0.0-2.0); %Eosinophils 3.2 % (0.0-6.0); %Lymphocytes 14.2 % (18.0-47.0); %Neutrophils 72.7 % (40.0-75.0); Mean Corpuscular HGB CONC 34.5 g/dL (32.0-36.0); Mean Corpuscular Volume 95.8 fl (81.2-95.1); Mean Platelet Volume 10.1 fl (7.4-10.4); Platelet Count 92 10x3/uL (150-450); RBC Distribution Width 15.9 % (11.5-14.5); Red Blood Cell (RBC) Count 2.12 10x6/uL (4.32-5.72); White Blood Cell (WBC) Count 3.5 10x3/uL (3.5-10.5)
[2022-07-12] MEDS: Sodium Chloride 0.9% 1,000 ML IV SCH ×2 (05:29→15:05)
[2022-07-12] MEDS: Rifaximin 550 MG TAB PO SCH ×2 (09:53→22:24)
[2022-07-12] MEDS: HYDROcodone/Acetaminophen 5/325 mg Tablet PO PRN (09:53)
[2022-07-12] MEDS: Pantoprazole 40 MG VIAL IVP SCH (09:55)
[2022-07-12] MEDS: cefTRIAXone\\ROCEPHIN 1 GM in Sodium Chloride 0.9% 100 ML IVPB SCH (22:23)
[2022-07-13 05:06] LABS: #Eosinphils 0.2 10x3/uL (0.0-0.5); #Monocytes 0.4 10x3/uL (0.0-1.1); #Neutrophils 2.6 10x3/uL (1.5-8.4); %Basophils 0.8 % (0.0-2.0); %Eosinophils 4.2 % (0.0-6.0); %Lymphocytes 15.8 % (18.0-47.0); %Neutrophils 68.9 % (40.0-75.0); Hemoglobin 7.7 g/dL (13.5-17.5); Mean Corpuscular HGB CONC 35.6 g/dL (32.0-36.0); Mean Corpuscular Hemoglobin 33.9 pg (27.0-33.0); Mean Corpuscular Volume 95.2 fl (81.2-95.1); Mean Platelet Volume 9.2 fl (7.4-10.4); Platelet Count 92 10x3/uL (150-450); Red Blood Cell (RBC) Count 2.27 10x6/uL (4.32-5.72); White Blood Cell (WBC) Count 3.8 10x3/uL (3.5-10.5)
[2022-07-13 05:18] LABS: ALT (SGPT) 11 U/L (8-55); AST (SGOT) 30 U/L (5-34); Albumin 3.1 g/dL (3.5-5.0); Alkaline Phosphatase 79 U/L (40-110); Anion Gap 9 mmol/L (10-20); BUN (Urea Nitrogen) 28 mg/dL (8.4-25.7); Bilirubin, Total 4.5 mg/dL (0.2-1.2); Calc. Creatinine Clearance 121 mL/min (70-130); Calcium 7.7 mg/dL (7.8-10.44); Carbon Dioxide 22 mmol/L (22-29); Chloride 106 mmol/L (98-107); Estimated GFR 68; Globulin 2.1 g/dL (2.4-3.5); Glucose 128 mg/dL (70-105); Potassium 4.3 mmol/L (3.5-5.1); Protein, Total 5.2 g/dL (6.0-8.3); Sodium 133 mmol/L (136-145)
[2022-07-13] MEDS: Rifaximin 550 MG TAB PO SCH (08:38)
[2022-07-13] MEDS: Sodium Chloride 0.9% 1,000 ML IV SCH ×2 (08:38→08:43)
[2022-07-13] MEDS: HYDROcodone/Acetaminophen 5/325 mg Tablet PO PRN (08:40)
[2022-07-13 12:55] VITALS: BP 127/58; TEMP 98.9
== END 2022-07-13 12:40 | disposition home or self-care (01) | DRG 377 ==
LOC: CSHERS 08:43 → CSHTELE 13:14
PROVIDERS: ADMIT Hospitalist; ATTEND Internal Medicine
PROC: 30233N1 Transfusion of Nonautologous Red Blood Cells into Peripheral Vein, Percutaneous Approach (ICD-10-PCS; 2022-07-09)
PROC: 30233J1 Transfusion of Nonautologous Serum Albumin into Peripheral Vein, Percutaneous Approach (ICD-10-PCS; 2022-07-09)
PROC: 0W3P8ZZ Control Bleeding in Gastrointestinal Tract, Via Natural or Artificial Opening Endoscopic (ICD-10-PCS; principal; 2022-07-10)
PROC: 0W9G3ZZ Drainage of Peritoneal Cavity, Percutaneous Approach (ICD-10-PCS; 2022-07-10)
DX: K31.811 Angiodysplasia of stomach and duodenum with bleeding (principal); K76.7 Hepatorenal syndrome; D62 Acute posthemorrhagic anemia; N17.9 Acute kidney failure, unspecified; E87.1 Hypo-osmolality and hyponatremia; K76.6 Portal hypertension; N18.4 Chronic kidney disease, stage 4 (severe); Z20.822 Contact with and (suspected) exposure to COVID-19; K70.30 Alcoholic cirrhosis of liver without ascites; D69.6 Thrombocytopenia, unspecified; E87.5 Hyperkalemia; K70.31 Alcoholic cirrhosis of liver with ascites; I12.9 Hypertensive chronic kidney disease with stage 1 through stage 4 chronic kidney disease, or unspecified chronic kidney disease; K31.89 Other diseases of stomach and duodenum; Z79.899 Other long term (current) drug therapy; Z98.890 Other specified postprocedural states
CPT/HCPCS: 36415; 36430; 49083; 76770; 80053; 82274; 84484; 85025; 85610; 85730; 86850; 86900; 86901; 87070; 87205; 89051; 93005; 94760; 96374; 96375; C9113; J0696; J1610; J1940; J2270; J2354; J2704; J3490; J7050; P9016; P9047; U0002

== ENCOUNTER 2022-07-15 07:14 | Day surgery (SDC) | payer BC, OTHER ==
[2022-07-15] MEDS ORDERED: Lidocaine 1% PF 5 ML VIAL ONE (07:26)
[2022-07-15] MEDS ORDERED: Sodium Bicarbonate 2.5 MEQ/5 ML VIAL ONE (07:27)
[2022-07-15] MEDS ORDERED: Albumin 25% 200 ML ONE (07:36)
[2022-07-15 07:44] VITALS: BP 123/58; TEMP 98.7
== END 2022-07-15 09:03 | disposition home or self-care (01) ==
LOC: CSHULT 07:14
PROVIDERS: ATTEND Physician Assistant Medical
PROC: 0W9G3ZZ Drainage of Peritoneal Cavity, Percutaneous Approach (ICD-10-PCS; principal; 2022-07-15)
DX: R18.8 Other ascites (principal)
CPT/HCPCS: 49083; P9047

== ENCOUNTER 2022-07-22 19:44 | Observation (INO) | payer BC, OTHER ==
[2022-07-22 22:00] LABS: SARS-CoV-2 NAA Rapid Test Not Detected (NotDetected)
[2022-07-22] MEDS ORDERED: PROPOFOL 20 ML ONE (22:30)
[2022-07-22] MEDS ORDERED: Lidocaine 1% PF 5 ML VIAL ONE (22:30)
[2022-07-22] MEDS ORDERED: Succinylcholine 200 MG/10 ml SYRINGE FS ONE (22:30)
[2022-07-22] MEDS ORDERED: Lidocaine 2% 6 ML SYR ONE (22:35)
[2022-07-22] MEDS ORDERED: ePHEDrine Sulfate 50 MG/10 ML VIAL ONE (23:16)
[2022-07-22] MEDS ORDERED: Dexamethasone 4 mg/ml Vial ONE (23:17)
[2022-07-22] MEDS ORDERED: Ondansetron PF 4 MG/2 ML Vial ONE (23:17)
[2022-07-22] MEDS ORDERED: PHENYLEPHRINE-NS 100 MCG/ML 10 ML SYRINGE ONE (23:22)
[2022-07-23] MEDS ORDERED: Ondansetron ODT 4 MG TAB SL PRN (00:05)
[2022-07-23 00:32] VITALS: BMI 34.0
[2022-07-23] MEDS ORDERED: Spironolactone 25 MG TAB PO SCH (08:00)
[2022-07-23 08:17] VITALS: BP 109/52; TEMP 97.9
[2022-07-23] MEDS ORDERED: Furosemide 40 MG TAB PO SCH (09:00)
[2022-07-23] MEDS ORDERED: Rifaximin 550 MG TAB PO SCH (09:00)
== END 2022-07-23 09:28 | disposition home or self-care (01) ==
LOC: CSHERS 19:44 → CSHTELE 07-23 00:20
PROVIDERS: ADMIT Internal Medicine Gastroenterology; ATTEND Internal Medicine Gastroenterology
PROC: 0DC58ZZ Extirpation of Matter from Esophagus, Via Natural or Artificial Opening Endoscopic (ICD-10-PCS; principal; 2022-07-23)
DX: T18.128A Food in esophagus causing other injury, initial encounter (principal); K22.2 Esophageal obstruction; K20.90 Esophagitis, unspecified without bleeding; K25.9 Gastric ulcer, unspecified as acute or chronic, without hemorrhage or perforation; K70.31 Alcoholic cirrhosis of liver with ascites; K72.90 Hepatic failure, unspecified without coma; Z79.899 Other long term (current) drug therapy; Z20.822 Contact with and (suspected) exposure to COVID-19; F17.220 Nicotine dependence, chewing tobacco, uncomplicated; X58.XXXA Exposure to other specified factors, initial encounter
CPT/HCPCS: 49083; 80053; 85025; 85610; 99285; G0378; J1100; J2405; J2704; P9047; U0002

== ENCOUNTER 2022-07-29 07:14 | Day surgery (SDC) | payer BC ==
[2022-07-29] MEDS ORDERED: Albumin 25% 200 ML ONE (07:31)
[2022-07-29] MEDS ORDERED: Lidocaine 1% PF 5 ML VIAL ONE (07:31)
[2022-07-29] MEDS ORDERED: Sodium Bicarbonate 2.5 MEQ/5 ML VIAL ONE (07:31)
[2022-07-29 07:52] VITALS: BP 117/58; TEMP 97.4
== END 2022-07-29 08:58 | disposition home or self-care (01) ==
LOC: CSHULT 07:14
PROVIDERS: ATTEND Physician Assistant Medical
PROC: 0W9G3ZZ Drainage of Peritoneal Cavity, Percutaneous Approach (ICD-10-PCS; principal; 2022-07-29)
DX: R18.8 Other ascites (principal)
CPT/HCPCS: 49083; P9047

== ENCOUNTER 2022-08-12 07:22 | Day surgery (SDC) | payer BC ==
[2022-08-12] MEDS ORDERED: Lidocaine 1% MPF 2 ML VIAL ONE ×2 (07:45→07:46)
[2022-08-12] MEDS ORDERED: Albumin 25% 200 ML ONE (07:45)
[2022-08-12] MEDS ORDERED: Sodium Bicarbonate 2.5 MEQ/5 ML VIAL ONE (07:46)
[2022-08-12 08:33] VITALS: BP 119/58; TEMP 98.2
[2022-08-15] MEDS ORDERED: FLU VACC QS2022-23(6MOS UP)/PF 60 MCG/0.5 ML SYRINGE IM ONE (09:00)
== END 2022-08-12 08:46 | disposition home or self-care (01) ==
LOC: CSHULT 07:22
PROVIDERS: ATTEND Physician Assistant Medical
PROC: 0W9G30Z Drainage of Peritoneal Cavity with Drainage Device, Percutaneous Approach (ICD-10-PCS; principal; 2022-08-12)
DX: R18.8 Other ascites (principal)
CPT/HCPCS: 49083; P9047

== ENCOUNTER 2022-08-19 07:22 | Day surgery (SDC) | payer BC, OTHER ==
[2022-08-19] MEDS ORDERED: Lidocaine 1% PF 5 ML VIAL ONE (07:45)
[2022-08-19] MEDS ORDERED: Sodium Bicarbonate 2.5 MEQ/5 ML VIAL ONE (07:45)
[2022-08-19] MEDS ORDERED: Albumin 25% 100 ML ONE ×2 (07:46→08:28)
[2022-08-19 08:05] VITALS: BP 98/48; TEMP 98
[2022-08-22] MEDS ORDERED: FLU VACC QS2022-23(6MOS UP)/PF 60 MCG/0.5 ML SYRINGE IM ONE (08:15)
== END 2022-08-19 08:50 | disposition home or self-care (01) ==
LOC: CSHULT 07:22
PROVIDERS: ATTEND Physician Assistant Medical
DX: R18.8 Other ascites (principal); Z53.09 Procedure and treatment not carried out because of other contraindication
CPT/HCPCS: 76705; P9047

== ENCOUNTER → 2022-09-02 | Day surgery (SDC) | payer BC | LOC: CSHULT 07:41 | PROVIDERS: ATTEND Physician Assistant Medical | DX: K70.31 Alcoholic cirrhosis of liver with ascites (principal); Z53.8 Procedure and treatment not carried out for other reasons | CPT/HCPCS: 76705 ==

== ENCOUNTER → 2022-09-16 | Day surgery (SDC) | payer BC ==
[~2022-09-16] MED LIST changes: +Albumin 25% 0 ML ONE; -Albumin 25% 200 ML ONE; -Lidocaine 1% PF 5 ML VIAL ONE; -Sodium Bicarbonate 2.5 MEQ/5 ML VIAL ONE
[2022-09-16 08:43] VITALS: BP 127/60
[2022-09-16 08:47] VITALS: TEMP 97.6
== END ==
LOC: CSHULT 07:55
PROVIDERS: ATTEND Physician Assistant Medical
DX: R18.8 Other ascites (principal); Z53.9 Procedure and treatment not carried out, unspecified reason
CPT/HCPCS: 76705; P9047